=== PATIENT | male | born 2000 | race Caucasian/White ===

== ENCOUNTER 2020-10-11 17:04 | Emergency (ER) | payer OTHER, SELFPAY ==
[2020-10-11 17:15] VITALS: BP 126/94; PULSE 91; RESP 20; TEMP 37.6; O2SAT 99
--- NOTE | 2020-10-11 17:37 | ED.ABDPAIN ---
HPI - Abdominal Pain General Chief Complaint: Abdominal Pain Stated Complaint: Lower abdominal pain Time Seen by Provider: 10/11/20 17:22 Source: patient and RN notes reviewed Mode of arrival: ambulatory Limitations: no limitations History of Present Illness HPI narrative: Patient presents today complaining of right-sided lower abdominal pain. Patient states sporadic pain such as this over the past month, but pain has been at its worst that started today and has been persisting throughout the day today. Vomiting x1 and diarrhea x1. He has never had vomiting or diarrhea in any of the other previous episodes of pain. Denies fever. Currently rates pain 6/10 has tried no medication for symptoms prior to arrival. States pain increases when he extends his hip and decreases when he flexes his hip. Denies any urinary symptoms. Denies any pain or swelling in his testicles or scrotum. MD elicited complaint: abdominal pain Related Data Home Medications Medication Instructions Recorded Confirmed No Home Medications 10/11/20 10/11/20 Allergies Allergy/AdvReac Type Severity Reaction Status Date / Time kiwi Allergy Itching Verified 10/11/20 17:28 Review of Systems Review of Systems: Narrative: CONSTITUTIONAL: Denies body aches, fever, chills, or sweats. EYES: Denies visual changes, redness, or discharge. ENT: Denies rhinorrhea, congestion, sore throat, or otalgia. CARDIOVASCULAR: Denies chest pain, palpitations, or edema. RESPIRATORY: Denies cough or dyspnea. GASTROINTESTINAL: Denies nausea,. + Right lower quadrant pain, vomiting, diarrhea GENITOURINARY: Denies dysuria or hematuria. SKIN: Denies rash, itching, or wounds. MUSCULOSKELETAL: Denies back pain, joint pain, or myalgia. NEUROLOGIC: Denies headache, numbness, tingling, or weakness. PSYCH: Denies depression or anxiety. PMFSH Comments At time of signature, I have reviewed and agree with nursing past medical, surgical, social and family history unless otherwise noted. Please see nursing chart for further information. There is no relevant family history pertinent to the presenting complaint Exam Narrative: Exam Narrative: GENERAL: Well-appearing, well-nourished, and in mild pain distress. Patient sits with right hip flexed for comfort and guarding. HEAD: Normocephalic, atraumatic. EYES: EOMI. No redness or drainage. Conjunctivae normal. ENT: Mucous membranes pink and moist. NECK: Normal AROM. CHEST: No respiratory distress. Clear to auscultation. HEART: Regular rate and rhythm. No murmur appreciated. Normal peripheral pulses. ABDOMEN: Soft, , nondistended, normal active bowel sounds. + Bony tenderness with light touch to the right iliac crest without edema or erythema noted. Patient also has some tenderness to the right lower quadrant without rebound. EXTREMITIES: Normal range of motion. No edema. SKIN: Warm, dry, no rash. Capillary refill normal. Normal skin turgor. NEURO: No focal deficits. Alert and oriented x3. Gait steady. PSYCH: Normal affect. No signs of depression or anxiety. Course Vital Signs Vital signs: Vital Signs Temperature 99.6 F 10/11/20 17:15 Pulse Rate 91 10/11/20 17:15 Respiratory Rate 20 10/11/20 17:15 Blood Pressure 126/94 H 10/11/20 17:15 Pulse Oximetry 99 10/11/20 17:15 Temperature 99.6 F 10/11/20 17:15 Pulse Rate 91 10/11/20 17:15 Respiratory Rate 20 10/11/20 17:15 Blood Pressure 126/94 H 10/11/20 17:15 Pulse Oximetry 99 10/11/20 17:15 Reviewed Transfer Transfered to: [facility] Transportation: Other (Private vehicle) Transfer rationale: Right lower quadrant abdominal pain Accepting physician: Denzel MDM - Abdominal Pain Differential Diagnosis Differential diagnosis: Likely abdominal pain, acute appendicitis and other (Malignancy, varicocele, hernia) Critical Care Time Critical Care Time Critical Care Time: No Discharge Plan Discharge Clinical Impression: Abdominal
== END 2020-10-11 17:45 | disposition short-term general hospital (02) ==
PROVIDERS: Emergency Provider Nurse Practitioner
DX: R10.31 Right lower quadrant pain (principal); K21.9 Gastro-esophageal reflux disease without esophagitis
CPT/HCPCS: 99212; G0463